=== PATIENT | female | born 1975 | race African-American/Black ===

== ENCOUNTER 2019-02-12 20:38 | Inpatient (IN) | payer OTHER ==
[2019-02-12 22:32] VITALS: BMI 26.6
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
[2019-02-12] MEDS ORDERED: ALBUTEROL SO4 0.083% IH SOL 2.5 MG/3 ML VIAL.NEB. NEB PRN (23:11)
[2019-02-12] MEDS ORDERED: MENTHOL/PHENOL 1 EACH UD MM PRN (23:12)
[2019-02-12] MEDS ORDERED: BISMUTH SUBSALICYLATE 524 MG/30 ML UD PO PRN (23:12)
[2019-02-12] MEDS ORDERED: hydrOXYzine PAMOATE 25 MG CAPSULE (FP) PO PRN (23:12)
[2019-02-12] MEDS ORDERED: MELATONIN 5 MG TABLETS PO PRN (23:12)
[2019-02-12] MEDS ORDERED: MAGNESIUM CITRATE 300 ML BOTTLE PO PRN (23:12)
[2019-02-12] MEDS ORDERED: ACETAMINOPHEN 325 MG TABLET (FP) PO PRN ×2 (23:12)
[2019-02-12] MEDS ORDERED: MAGNESIUM HYDROX 2400MG/30ML ORAL SUSPENSION 30 ML CUP PO PRN (23:12)
[2019-02-12] MEDS ORDERED: METHOCARBAMOL 500 MG TABLET PO PRN (23:12)
[2019-02-12] MEDS ORDERED: MAG HYDROX/AL HYDROX/SIMETH 30 ML UNIT-DOSE CUP PO PRN (23:12)
[2019-02-12] MEDS ORDERED: diazePAM 5 MG TABLET PO ONE (23:14)
[2019-02-12] MEDS ORDERED: diazePAM 5 MG TABLET PO PRN (23:14)
[2019-02-13] MEDS: IBUPROFEN 400 MG TABLET (FP) PO PRN ×3 (00:57→23:04)
[2019-02-13] MEDS: diazePAM 5 MG TABLET PO SCH ×4 (01:47→20:04)
[2019-02-13] MEDS: NICOTINE POLACRILEX 2 MG GUM BUC PRN (06:08)
[2019-02-13] MEDS ORDERED: PNEUMOCOCCAL 23 VACCINE 0.5 ML VIAL IM ONE (08:00)
[2019-02-13 09:49] LABS: HEMATOCRIT 32.7 % (32.4-45.2); HEMOGLOBIN 10.6 GM/dL (10.7-15.3); MCH 28.5 pg (25.7-33.7); MCHC 32.4 g/dl (32.0-36.0); MEAN CELL VOLUME 88.2 fl (80-96); MEAN PLT VOLUME 9.1 fl (7.5-11.1); PLATELET COUNT 293 K/MM3 (134-434); RBC 3.71 M/mm3 (3.60-5.2); WHITE BLOOD COUNT 6.5 K/mm3 (4.0-10.0)
[2019-02-13 09:58] LABS: ALBUMIN 3.1 g/dl (3.4-5.0); BILIRUBIN,TOTAL 0.3 mg/dL (0.2-1); CALCIUM 8.8 mg/dL (8.5-10.1); CREATININE 0.6 mg/dL (0.55-1.3); TOT PROT 6.5 g/dl (6.4-8.2)
[2019-02-13] MEDS: PRENATAL VITAMINS W/ FOLIC ACID TABLET (FP) PO SCH (10:18)
[2019-02-13] MEDS: NICOTINE 14 MG/24 HOURS TOPICAL PATCH TD SCH (10:18)
[2019-02-13] MEDS: DOLUTEGRAVIR SODIUM 50 MG TABLET (NON-FORMULARY) PO SCH (10:19)
[2019-02-13] MEDS: EMTRICITABINE 200MG/TENOFOVIR 300MG PO SCH (10:19)
--- NOTE | 2019-02-13 10:45 | EKG ---
Test Reason : Blood Pressure : / mmHG Vent. Rate : 079 BPM Atrial Rate : 079 BPM P-R Int : 138 ms QRS Dur : 076 ms QT Int : 380 ms P-R-T Axes : 057 079 060 degrees QTc Int : 435 ms SINUS RHYTHM WITH PREMATURE ATRIAL COMPLEXES OTHERWISE NORMAL ECG NO PREVIOUS ECGS AVAILABLE Confirmed by IMELDA JOHNSON, SUZAN ([id number]) on 02/13/2019 10:45:02 AM Referred By: Ramon Grewal Confirmed By:SUZAN SEGURA MD
--- NOTE | 2019-02-13 10:45 | EKG ---
Test Reason : Blood Pressure : / mmHG Vent. Rate : 071 BPM Atrial Rate : 071 BPM P-R Int : 136 ms QRS Dur : 072 ms QT Int : 410 ms P-R-T Axes : 034 074 047 degrees QTc Int : 445 ms NORMAL SINUS RHYTHM NORMAL ECG WHEN COMPARED WITH ECG OF 13-FEB-2019 00:53, PREMATURE ATRIAL COMPLEXES ARE NO LONGER PRESENT Confirmed by SUZAN SEGURA MD ([id number]) on 02/13/2019 10:45:13 AM Referred By: Ramon Grewal Confirmed By:SUZAN SEGURA MD
[2019-02-13] MEDS ORDERED: PNEUMOC 13-VAL CONJ-DIP CRM/PF 0.5 ML DISP.SYRIN IM ONE (12:00)
--- NOTE | 2019-02-13 12:02 | PN ---
S CIWA - CIWA Score Nausea/Vomitin-No Nausea/No Vomiting Muscle Tremors: 1-None Visible, but [place] Anxiety: 2 Agitation: 1-Slight > Activity Paroxysmal Sweats: No Perspiration Orientation: 0-Oriented Tacttile Disturbances: 0-None Auditory Disturbances: 0-None Visual Disturbances: 0-None Headache: 0-None Present CIWA-Ar Total Score: 4 B[facility] Progress Note (SOAP) Subjective: trouble sleeping I am feeling ok Objective: 02/13/19 12:01 Vital Signs Temperature 97.7 F 02/13/19 09:39 Pulse Rate 73 02/13/19 09:39 Respiratory Rate 18 02/13/19 09:39 Blood Pressure 141/77 02/13/19 09:39 O2 Sat by Pulse Oximetry (%) Laboratory Tests 02/12/19 02/13/19 02/13/19 23:03 08:00 08:00 WBC 6.5 RBC 3.71 Hgb 10.6 L Hct 32.7 MCV 88.2 MCH 28.5 MCHC 32.4 RDW 14.0 Plt Count 293 MPV 9.1 Sodium 139 Potassium 4.0 Chloride 109 H Carbon Dioxide 23 Anion Gap 6 L BUN 14.0 Creatinine 0.6 Est GFR (CKD-EPI)AfAm 127.58 Est GFR (CKD-EPI)NonAf 110.08 Random Glucose 88 Calcium 8.8 Total Bilirubin 0.3 AST 21 ALT 20 Alkaline Phosphatase 57 Total Protein 6.5 Albumin 3.1 L POC Urine HCG, Qual Negative RPR Titer 02/13/19 08:00 WBC RBC Hgb Hct MCV MCH MCHC RDW Plt Count MPV Sodium Potassium Chloride Carbon Dioxide Anion Gap BUN Creatinine Est GFR (CKD-EPI)AfAm Est GFR (CKD-EPI)NonAf Random Glucose Calcium Total Bilirubin AST ALT Alkaline Phosphatase Total Protein Albumin POC Urine HCG, Qual RPR Titer Nonreactive labs noted aaox3 ambulating no acute distress Assessment: 02/13/19 12:02 mild withdrawals Plan: continue detox increase fluids trazadone 50mg qhs d/c in am
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
[2019-02-13] MEDS ORDERED: SUVOREXANT 10 MG TABLET PO PRN (22:00)
[2019-02-13] MEDS ORDERED: GABAPENTIN 400 MG CAPSULE (FP) PO SCH (22:00)
[2019-02-13] MEDS ORDERED: traZODone HCL 50 MG TABLET (FP) PO SCH (22:00)
[2019-02-13] MEDS ORDERED: THIAMINE HCL 100 MG TABLET (FP) PO SCH (22:00)
[2019-02-13] MEDS: TOPIRAMATE 100 MG TABLET PO SCH (22:26)
[2019-02-14] MEDS ORDERED: diazePAM 5 MG TABLET PO ONE (06:00)
--- NOTE | 2019-02-14 08:49 | DS ---
[facility] Detox Discharge Summary Admission Date: 02/12/19 Discharge Date: 02/14/19 - History Present History: Alcohol Dependence, Cocaine Dependence - Physical Exam Results Vital Signs: Vital Signs Temperature 97.7 F 02/14/19 05:36 Pulse Rate 169 H 02/14/19 05:36 Respiratory Rate 18 02/14/19 05:36 Blood Pressure 121/70 02/14/19 05:36 O2 Sat by Pulse Oximetry (%) Pertinent Admission Physical Exam Findings: Vital Signs Temperature 97.7 F 02/14/19 05:36 Pulse Rate 169 H 02/14/19 05:36 Respiratory Rate 18 02/14/19 05:36 Blood Pressure 121/70 02/14/19 05:36 O2 Sat by Pulse Oximetry (%) Laboratory Last Values WBC 6.5 K/mm3 (4.0-10.0) 02/13/19 08:00 RBC 3.71 M/mm3 (3.60-5.2) 02/13/19 08:00 Hgb 10.6 GM/dL (10.7-15.3) L 02/13/19 08:00 Hct 32.7 % (32.4-45.2) 02/13/19 08:00 MCV 88.2 fl (80-96) 02/13/19 08:00 MCH 28.5 pg (25.7-33.7) 02/13/19 08:00 MCHC 32.4 g/dl (32.0-36.0) 02/13/19 08:00 RDW 14.0 % (11.6-15.6) 02/13/19 08:00 Plt Count 293 K/MM3 (134-434) 02/13/19 08:00 MPV 9.1 fl (7.5-11.1) 02/13/19 08:00 Sodium 139 mmol/L (136-145) 02/13/19 08:00 Potassium 4.0 mmol/L (3.5-5.1) 02/13/19 08:00 Chloride 109 mmol/L (98-107) H 02/13/19 08:00 Carbon Dioxide 23 mmol/L (21-32) 02/13/19 08:00 Anion Gap 6 MMOL/L (8-16) L 02/13/19 08:00 BUN 14.0 mg/dL (7-18) 02/13/19 08:00 Creatinine 0.6 mg/dL (0.55-1.3) 02/13/19 08:00 Est GFR (CKD-EPI)AfAm 127.58 02/13/19 08:00 Est GFR (CKD-EPI)NonAf 110.08 02/13/19 08:00 Random Glucose 88 mg/dL (74-106) 02/13/19 08:00 Calcium 8.8 mg/dL (8.5-10.1) 02/13/19 08:00 Total Bilirubin 0.3 mg/dL (0.2-1) 02/13/19 08:00 AST 21 U/L (15-37) 02/13/19 08:00 ALT 20 U/L (13-61) 02/13/19 08:00 Alkaline Phosphatase 57 U/L (45-117) 02/13/19 08:00 Total Protein 6.5 g/dl (6.4-8.2) 02/13/19 08:00 Albumin 3.1 g/dl (3.4-5.0) L 02/13/19 08:00 POC Urine HCG, Qual Negative 02/12/19 23:03 RPR Titer Nonreactive (NONREACTIVE) 02/13/19 08:00 aaox3 ambulating no acute distress - Treatment Hospital Course: Detox Protocol Followed, Detoxed Safely, Responded well, Discharged Condition Good, Rehab Referral Accepted Patient has Accepted a Rehab Referral to: pt referred to [facility] inpatient rehab - Medication Discharge Medications: Ambulatory Orders Topiramate [Topamax] 200 mg PO DAILY #30 tablet 12/21/12 Dextroamphetamine/Amphetamine [Adderall Xr 20 mg Capsule] 20 mg PO BID 02/12/19 Gabapentin 600 mg PO TID 02/12/19 Gabapentin 800 mg PO HS 02/12/19 - Diagnosis (1) ADHD (attention deficit hyperactivity disorder) Current Visit: Yes Status: Acute (2) Asthma Current Visit: Yes Status: Acute (3) Bipolar disorder Current Visit: Yes Status: Acute (4) Cocaine dependence Current Visit: Yes Status: Chronic Qualifiers: Substance use status: uncomplicated Qualified Code(s): F14.20 - Cocaine dependence, uncomplicated (5) Substance-induced sleep disorder Current Visit: Yes Status: Acute (6) Uncomplicated alcohol dependence Current Visit: Yes Status: Chronic (7) Cocaine dependence Current Visit: Yes Status: Chronic (8) Nicotine dependence Current Visit: Yes Status: Chronic Qualifiers: Nicotine product type: cigarettes Substance use status: uncomplicated Qualified Code(s): F17.210 - Nicotine dependence, cigarettes, uncomplicated (9) Pulmonary embolism Current Visit: Yes Status: Resolved - AMA Did Patient Leave Against Medical Advice: No
[2019-02-14 10:03] VITALS: BP 133/74; PULSE 87; TEMP 98.2
--- NOTE | 2019-02-14 10:34 | PN ---
[facility] Progress Note Note: rewriter called pt's pharmacy ([facility]) to confirm pt medication. Pt is not prescribed HIV medication sent to pharmacy. Pt will not be prescribed antiviral medication while in detox or rehab. Pt is required to see her PCP or ID medical doctor for follow up and have her medication updated. Pt also stated in admission she is not HIV+ therefore both tiviay and truvada were discontinued from her medication profile. As per pharmacy ([facility]) pt has prescription for gabapentin and topromax and albuterol only.
[2019-02-14] MEDS ORDERED: ALBUTEROL SO4 8 GM HFA INHALER IH PRN (10:35)
[2019-02-14] MEDS: PRENATAL VITAMINS W/ FOLIC ACID TABLET (FP) PO SCH (10:58)
[2019-02-14] MEDS: TOPIRAMATE 100 MG TABLET PO SCH (10:58)
[2019-02-14] MEDS: NICOTINE 14 MG/24 HOURS TOPICAL PATCH TD SCH (11:00)
[2019-02-14] MEDS: NICOTINE POLACRILEX 2 MG GUM BUC PRN (11:02)
[2019-02-14] MEDS: DOLUTEGRAVIR SODIUM 50 MG TABLET (NON-FORMULARY) PO SCH (11:40)
[2019-02-14] MEDS: EMTRICITABINE 200MG/TENOFOVIR 300MG PO SCH (11:40)
== END 2019-02-14 12:55 | disposition other institution (70) | DRG 774 ==
LOC: YASAS 20:38 → Y6N 23:53
PROVIDERS: ADMIT Allergy & Immunology; ATTEND Allergy & Immunology
PROC: HZ2ZZZZ Detoxification Services for Substance Abuse Treatment (ICD-10-PCS; principal; 2019-02-12)
DX: F10.230 Alcohol dependence with withdrawal, uncomplicated (principal); F14.20 Cocaine dependence, uncomplicated; F17.210 Nicotine dependence, cigarettes, uncomplicated; F19.282 Other psychoactive substance dependence with psychoactive substance-induced sleep disorder; F31.9 Bipolar disorder, unspecified; F90.9 Attention-deficit hyperactivity disorder, unspecified type; M17.0 Bilateral primary osteoarthritis of knee; J45.998 Other asthma; Z86.711 Personal history of pulmonary embolism; Z86.718 Personal history of other venous thrombosis and embolism; Z91.5 Personal history of self-harm; Z91.02 Food additives allergy status; Z59.0 Homelessness
CPT/HCPCS: 36415; 80053; 81025; 85027; 86593; 93005; 93010

== ENCOUNTER 2019-02-14 11:50 | Inpatient (IN) | payer OTHER ==
--- NOTE | 2019-02-14 10:22 | HP ---
[facility] Rehab Assess/Revision - Admission History Admitted to Rehab from[facility] - Findings Detox History & Physical reviewed: Yes Concur with findings: Yes Inpatient Rehab Admission - Rehab Decision to Admit Inpatient rehab admission?: Yes - Initial Determination Are CD services needed?: Yes Free of communicable disease: Yes Not in need of hospitalization: Yes - Rehab Admission Criteria Previous failed treatment: Yes Poor recovery environment: Yes Comorbidities: Yes Lacks judgement: Yes Patient is meeting Inpatient Rehab admission criteria:: Yes
[~2019-02-14 11:50] MED LIST: ACETAMINOPHEN 325 MG TABLET (FP) PO PRN; IBUPROFEN 400 MG TABLET (FP) PO PRN; LOPERAMIDE HCL 2 MG CAPSULE PO PRN; MAG HYDROX/AL HYDROX/SIMETH 30 ML UNIT-DOSE CUP PO PRN; MAGNESIUM CITRATE 300 ML BOTTLE PO PRN; MAGNESIUM HYDROX 2400MG/30ML ORAL SUSPENSION 30 ML CUP PO PRN; MENTHOL/PHENOL 1 EACH UD MM PRN; P-EPHED 60MG/TRIPROLIDI 2.5MG TABLET PO PRN; guaiFENesin 200 MG/10 ML 10 ML UNIT-DOSE CUPS PO PRN
[2019-02-14] MEDS ORDERED: ALBUTEROL SO4 8 GM HFA INHALER IH PRN (14:43)
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
[2019-02-14] MEDS: EMTRICITABINE 200MG/TENOFOVIR 300MG PO SCH (15:47)
[2019-02-14] MEDS: DOLUTEGRAVIR SODIUM 50 MG TABLET (NON-FORMULARY) PO SCH (15:47)
[2019-02-14] MEDS: IBUPROFEN 400 MG TABLET (FP) PO PRN ×2 (15:49→22:17)
[2019-02-14] MEDS ORDERED: PT OWN MED DRAWER 7, Y5N ONE ×3 (20:58→21:27)
[2019-02-14] MEDS: GABAPENTIN 400 MG CAPSULE (FP) PO SCH (21:24)
[2019-02-14] MEDS: THIAMINE HCL 100 MG TABLET (FP) PO SCH (21:27)
[2019-02-14] MEDS: TOPIRAMATE 200 MG TABLET (FP) PO SCH (21:27)
[2019-02-14] MEDS: MELATONIN 5 MG TABLETS PO PRN (22:37)
[2019-02-14] MEDS: hydrOXYzine PAMOATE 50 MG CAPSULE (FP) PO PRN (22:38)
[2019-02-14] MEDS: SUVOREXANT 10 MG TABLET PO PRN (22:38)
[2019-02-15] MEDS: TOPIRAMATE 200 MG TABLET (FP) PO SCH (10:02)
[2019-02-15] MEDS: PRENATAL VITAMINS W/ FOLIC ACID TABLET (FP) PO SCH (10:02)
[2019-02-15] MEDS: EMTRICITABINE 200MG/TENOFOVIR 300MG PO SCH (10:03)
[2019-02-15] MEDS: DOLUTEGRAVIR SODIUM 50 MG TABLET (NON-FORMULARY) PO SCH (10:03)
[2019-02-15] MEDS: GABAPENTIN 400 MG CAPSULE (FP) PO SCH (21:36)
[2019-02-15] MEDS: THIAMINE HCL 100 MG TABLET (FP) PO SCH (21:37)
[2019-02-15] MEDS: TOPIRAMATE 100 MG TABLET PO SCH (21:37)
[2019-02-15] MEDS: IBUPROFEN 400 MG TABLET (FP) PO PRN (21:39)
[2019-02-15] MEDS: SUVOREXANT 10 MG TABLET PO PRN (21:40)
[2019-02-15] MEDS: hydrOXYzine PAMOATE 50 MG CAPSULE (FP) PO PRN (21:40)
[2019-02-15] MEDS: MELATONIN 5 MG TABLETS PO PRN (21:40)
[2019-02-16] MEDS: PRENATAL VITAMINS W/ FOLIC ACID TABLET (FP) PO SCH (10:25)
[2019-02-16] MEDS: TOPIRAMATE 100 MG TABLET PO SCH ×2 (10:25→21:01)
[2019-02-16] MEDS: DOLUTEGRAVIR SODIUM 50 MG TABLET (NON-FORMULARY) PO SCH (10:26)
[2019-02-16] MEDS: EMTRICITABINE 200MG/TENOFOVIR 300MG PO SCH (10:26)
[2019-02-16] MEDS ORDERED: PT OWN MED DRAWER 7, Y5N ONE ×2 (11:02→18:42)
[2019-02-16] MEDS: GABAPENTIN 400 MG CAPSULE (FP) PO SCH (21:01)
[2019-02-16] MEDS: SUVOREXANT 10 MG TABLET PO PRN (21:02)
[2019-02-16] MEDS: THIAMINE HCL 100 MG TABLET (FP) PO SCH (21:02)
[2019-02-16] MEDS: MELATONIN 5 MG TABLETS PO PRN (21:03)
[2019-02-16] MEDS: hydrOXYzine PAMOATE 50 MG CAPSULE (FP) PO PRN (23:24)
[2019-02-16] MEDS: IBUPROFEN 400 MG TABLET (FP) PO PRN (23:24)
[2019-02-17] MEDS ORDERED: NICOTINE POLACRILEX 4 MG GUM BUC PRN (08:41)
[2019-02-17] MEDS ORDERED: PT OWN MED DRAWER 7, Y5N ONE ×2 (08:44→19:24)
[2019-02-17] MEDS: NICOTINE 21 MG/24 HOURS TOPICAL PATCH TD SCH (10:02)
[2019-02-17] MEDS: EMTRICITABINE 200MG/TENOFOVIR 300MG PO SCH (10:03)
[2019-02-17] MEDS: TOPIRAMATE 100 MG TABLET PO SCH ×2 (10:03→22:22)
[2019-02-17] MEDS: DOLUTEGRAVIR SODIUM 50 MG TABLET (NON-FORMULARY) PO SCH (10:03)
[2019-02-17] MEDS: PRENATAL VITAMINS W/ FOLIC ACID TABLET (FP) PO SCH (10:03)
[2019-02-17] MEDS: CHLORHEXIDINE GLUCONATE 118 ML MOUTHWASH MM SCH (21:19)
[2019-02-17] MEDS: THIAMINE HCL 100 MG TABLET (FP) PO SCH (21:20)
[2019-02-17] MEDS: GABAPENTIN 400 MG CAPSULE (FP) PO SCH (21:20)
[2019-02-17] MEDS: MELATONIN 5 MG TABLETS PO PRN (21:21)
[2019-02-17] MEDS: hydrOXYzine PAMOATE 50 MG CAPSULE (FP) PO PRN (21:21)
[2019-02-17] MEDS: IBUPROFEN 400 MG TABLET (FP) PO PRN (21:53)
[2019-02-17] MEDS ORDERED: SUVOREXANT 10 MG TABLET PO ONE (22:00)
[2019-02-18] MEDS ORDERED: SUVOREXANT 10 MG TABLET PO PRN (08:21)
[2019-02-18] MEDS: CHLORHEXIDINE GLUCONATE 118 ML MOUTHWASH MM SCH ×2 (09:14→21:12)
[2019-02-18] MEDS: DOLUTEGRAVIR SODIUM 50 MG TABLET (NON-FORMULARY) PO SCH (09:14)
[2019-02-18] MEDS: EMTRICITABINE 200MG/TENOFOVIR 300MG PO SCH (09:14)
[2019-02-18] MEDS: PRENATAL VITAMINS W/ FOLIC ACID TABLET (FP) PO SCH (09:14)
[2019-02-18] MEDS: NICOTINE 21 MG/24 HOURS TOPICAL PATCH TD SCH (09:14)
[2019-02-18] MEDS: TOPIRAMATE 100 MG TABLET PO SCH ×2 (09:14→21:12)
[2019-02-18] MEDS ORDERED: PT OWN MED DRAWER 7, Y5N ONE (19:34)
[2019-02-18] MEDS: GABAPENTIN 400 MG CAPSULE (FP) PO SCH (21:12)
[2019-02-18] MEDS: THIAMINE HCL 100 MG TABLET (FP) PO SCH (21:12)
[2019-02-18] MEDS: MELATONIN 5 MG TABLETS PO PRN (21:14)
[2019-02-18] MEDS: hydrOXYzine PAMOATE 50 MG CAPSULE (FP) PO PRN (21:14)
[2019-02-18] MEDS: IBUPROFEN 400 MG TABLET (FP) PO PRN (22:03)
[2019-02-18 23:09] LABS: EPI CELLS 24.4 /HPF (0-5/HPF); HYALINE CASTS 5 /lpf (0-8); URINE APPEARANCE CLOUDY; URINE BACTERIA 565.3 /hpf (NEGATIVE); URINE BILIRUBIN NEGATIVE (NEGATIVE); URINE COLOR YELLOW; URINE GLUCOSE (UA) NEGATIVE (NEGATIVE); URINE KETONE NEGATIVE (NEGATIVE); URINE LEUK ESTERASE TRACE (NEGATIVE); URINE NITRITE NEGATIVE (NEGATIVE); URINE PROTEIN NEGATIVE (NEGATIVE); URINE RBC 1 /hpf (0-4); URINE UROBILINOGEN 0.2 mg/dL (0.2-1.0); URINE WBC 11 /hpf (0-5)
[2019-02-19] MEDS: CHLORHEXIDINE GLUCONATE 118 ML MOUTHWASH MM SCH ×2 (09:44→21:27)
[2019-02-19] MEDS: NICOTINE 21 MG/24 HOURS TOPICAL PATCH TD SCH (09:44)
[2019-02-19] MEDS: TOPIRAMATE 100 MG TABLET PO SCH ×2 (09:45→21:31)
[2019-02-19] MEDS: PRENATAL VITAMINS W/ FOLIC ACID TABLET (FP) PO SCH (09:45)
[2019-02-19] MEDS: DOLUTEGRAVIR SODIUM 50 MG TABLET (NON-FORMULARY) PO SCH (09:46)
[2019-02-19] MEDS: EMTRICITABINE 200MG/TENOFOVIR 300MG PO SCH (09:46)
[2019-02-19] MEDS ORDERED: PT OWN MED DRAWER 7, Y5N ONE ×2 (09:51→21:31)
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
[2019-02-19 20:11] LABS: EPI CELLS 36.8 /HPF (0-5/HPF); HYALINE CASTS 11 /lpf (0-8); URINE APPEARANCE TURBID; URINE BACTERIA 850.1 /hpf (NEGATIVE); URINE BILIRUBIN NEGATIVE (NEGATIVE); URINE COLOR YELLOW; URINE GLUCOSE (UA) NEGATIVE (NEGATIVE); URINE KETONE NEGATIVE (NEGATIVE); URINE LEUK ESTERASE TRACE (NEGATIVE); URINE NITRITE NEGATIVE (NEGATIVE); URINE PROTEIN NEGATIVE (NEGATIVE); URINE RBC 6 /hpf (0-4); URINE UROBILINOGEN 0.2 mg/dL (0.2-1.0); URINE WBC 8 /hpf (0-5)
[2019-02-19] MEDS: THIAMINE HCL 100 MG TABLET (FP) PO SCH (21:27)
[2019-02-19] MEDS: GABAPENTIN 400 MG CAPSULE (FP) PO SCH (21:28)
[2019-02-19] MEDS: MELATONIN 5 MG TABLETS PO PRN (21:28)
[2019-02-19] MEDS: IBUPROFEN 400 MG TABLET (FP) PO PRN (21:32)
[2019-02-19] MEDS: hydrOXYzine PAMOATE 50 MG CAPSULE (FP) PO PRN (21:33)
[2019-02-20] MEDS: TOPIRAMATE 100 MG TABLET PO SCH ×2 (10:19→21:30)
[2019-02-20] MEDS: PRENATAL VITAMINS W/ FOLIC ACID TABLET (FP) PO SCH (10:19)
[2019-02-20] MEDS: EMTRICITABINE 200MG/TENOFOVIR 300MG PO SCH (10:20)
[2019-02-20] MEDS: NICOTINE 21 MG/24 HOURS TOPICAL PATCH TD SCH (10:20)
[2019-02-20] MEDS: DOLUTEGRAVIR SODIUM 50 MG TABLET (NON-FORMULARY) PO SCH (10:20)
[2019-02-20] MEDS: CHLORHEXIDINE GLUCONATE 118 ML MOUTHWASH MM SCH ×2 (10:21→21:30)
[2019-02-20] MEDS ORDERED: COLLOIDAL OATMEAL 1 BAR EACH TP PRN (11:46)
--- NOTE | 2019-02-20 14:09 | PN ---
[facility] Progress Note Note: Psychiatric nurse practitioner note: Belsomra 10mg renewed X3 days. Verbal consent given.
[2019-02-20] MEDS: SUVOREXANT 10 MG TABLET PO PRN (21:27)
[2019-02-20] MEDS: IBUPROFEN 400 MG TABLET (FP) PO PRN (21:28)
[2019-02-20] MEDS: GABAPENTIN 400 MG CAPSULE (FP) PO SCH (21:28)
[2019-02-20] MEDS: MELATONIN 5 MG TABLETS PO PRN (21:29)
[2019-02-20] MEDS: THIAMINE HCL 100 MG TABLET (FP) PO SCH (21:29)
[2019-02-21] MEDS: PRENATAL VITAMINS W/ FOLIC ACID TABLET (FP) PO SCH (09:59)
[2019-02-21] MEDS: TOPIRAMATE 100 MG TABLET PO SCH ×2 (09:59→21:48)
[2019-02-21] MEDS: EMTRICITABINE 200MG/TENOFOVIR 300MG PO SCH (09:59)
[2019-02-21] MEDS: CHLORHEXIDINE GLUCONATE 118 ML MOUTHWASH MM SCH ×2 (09:59→23:27)
[2019-02-21] MEDS: NICOTINE 21 MG/24 HOURS TOPICAL PATCH TD SCH (09:59)
[2019-02-21] MEDS: DOLUTEGRAVIR SODIUM 50 MG TABLET (NON-FORMULARY) PO SCH (09:59)
[2019-02-21 16:08] LABS: HEP B CORE AB, TOT Negative (Negative)
[2019-02-21] MEDS ORDERED: PT OWN MED DRAWER 7, Y5N ONE ×2 (19:39→21:49)
[2019-02-21] MEDS: GABAPENTIN 400 MG CAPSULE (FP) PO SCH (21:49)
[2019-02-21] MEDS: THIAMINE HCL 100 MG TABLET (FP) PO SCH (21:49)
[2019-02-21] MEDS: MELATONIN 5 MG TABLETS PO PRN (21:50)
[2019-02-21] MEDS: SUVOREXANT 10 MG TABLET PO PRN (21:50)
[2019-02-21] MEDS: IBUPROFEN 400 MG TABLET (FP) PO PRN (21:50)
[2019-02-22] MEDS ORDERED: PT OWN MED DRAWER 7, Y5N ONE (08:51)
[2019-02-22] MEDS: PRENATAL VITAMINS W/ FOLIC ACID TABLET (FP) PO SCH (09:32)
[2019-02-22] MEDS: TOPIRAMATE 100 MG TABLET PO SCH ×2 (09:32→21:03)
[2019-02-22] MEDS: CHLORHEXIDINE GLUCONATE 118 ML MOUTHWASH MM SCH ×2 (09:33→21:07)
[2019-02-22] MEDS: EMTRICITABINE 200MG/TENOFOVIR 300MG PO SCH (09:34)
[2019-02-22] MEDS: NICOTINE 21 MG/24 HOURS TOPICAL PATCH TD SCH (09:34)
[2019-02-22] MEDS: DOLUTEGRAVIR SODIUM 50 MG TABLET (NON-FORMULARY) PO SCH (09:34)
[2019-02-22] MEDS: IBUPROFEN 400 MG TABLET (FP) PO PRN (18:28)
[2019-02-22] MEDS: GABAPENTIN 400 MG CAPSULE (FP) PO SCH (21:03)
[2019-02-22] MEDS: hydrOXYzine PAMOATE 50 MG CAPSULE (FP) PO PRN (21:04)
[2019-02-22] MEDS: SUVOREXANT 10 MG TABLET PO PRN (21:04)
[2019-02-22] MEDS: MELATONIN 5 MG TABLETS PO PRN (21:05)
[2019-02-22] MEDS: THIAMINE HCL 100 MG TABLET (FP) PO SCH (21:05)
[2019-02-23] MEDS ORDERED: PT OWN MED DRAWER 7, Y5N ONE ×2 (08:42→10:36)
[2019-02-23] MEDS: PRENATAL VITAMINS W/ FOLIC ACID TABLET (FP) PO SCH (10:30)
[2019-02-23] MEDS: NICOTINE 21 MG/24 HOURS TOPICAL PATCH TD SCH (10:30)
[2019-02-23] MEDS: CHLORHEXIDINE GLUCONATE 118 ML MOUTHWASH MM SCH ×2 (10:30→21:31)
[2019-02-23] MEDS: TOPIRAMATE 100 MG TABLET PO SCH ×2 (10:36→21:30)
[2019-02-23] MEDS: DOLUTEGRAVIR SODIUM 50 MG TABLET (NON-FORMULARY) PO SCH (10:37)
[2019-02-23] MEDS: EMTRICITABINE 200MG/TENOFOVIR 300MG PO SCH (10:37)
--- NOTE | 2019-02-23 12:24 | PN ---
[facility] Progress Note Note: Psychiatric nurse practitoner note: Belsomra 10mg renewed X3 days. Verbal consent given.
[2019-02-23] MEDS: THIAMINE HCL 100 MG TABLET (FP) PO SCH (21:27)
[2019-02-23] MEDS: MELATONIN 5 MG TABLETS PO PRN (21:29)
[2019-02-23] MEDS: hydrOXYzine PAMOATE 50 MG CAPSULE (FP) PO PRN (21:29)
[2019-02-23] MEDS: SUVOREXANT 10 MG TABLET PO PRN (21:29)
[2019-02-23] MEDS: IBUPROFEN 400 MG TABLET (FP) PO PRN (21:29)
[2019-02-23] MEDS: GABAPENTIN 400 MG CAPSULE (FP) PO SCH (21:30)
[2019-02-24] MEDS: PRENATAL VITAMINS W/ FOLIC ACID TABLET (FP) PO SCH (09:53)
[2019-02-24] MEDS: DOLUTEGRAVIR SODIUM 50 MG TABLET (NON-FORMULARY) PO SCH (09:53)
[2019-02-24] MEDS: CHLORHEXIDINE GLUCONATE 118 ML MOUTHWASH MM SCH ×2 (09:54→21:40)
[2019-02-24] MEDS: EMTRICITABINE 200MG/TENOFOVIR 300MG PO SCH (09:54)
[2019-02-24] MEDS: TOPIRAMATE 100 MG TABLET PO SCH ×2 (09:54→21:39)
[2019-02-24] MEDS: NICOTINE 21 MG/24 HOURS TOPICAL PATCH TD SCH (09:54)
[2019-02-24] MEDS: hydrOXYzine PAMOATE 50 MG CAPSULE (FP) PO PRN ×2 (15:48→21:38)
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
[2019-02-24] MEDS ORDERED: PT OWN MED DRAWER 7, Y5N ONE (19:37)
[2019-02-24] MEDS: SUVOREXANT 10 MG TABLET PO PRN (21:38)
[2019-02-24] MEDS: THIAMINE HCL 100 MG TABLET (FP) PO SCH (21:38)
[2019-02-24] MEDS: GABAPENTIN 400 MG CAPSULE (FP) PO SCH (21:38)
[2019-02-24] MEDS: IBUPROFEN 400 MG TABLET (FP) PO PRN (21:38)
[2019-02-25] MEDS: CHLORHEXIDINE GLUCONATE 118 ML MOUTHWASH MM SCH ×2 (09:48→21:14)
[2019-02-25] MEDS: TOPIRAMATE 100 MG TABLET PO SCH ×2 (09:49→21:12)
[2019-02-25] MEDS: NICOTINE 21 MG/24 HOURS TOPICAL PATCH TD SCH (09:49)
[2019-02-25] MEDS: PRENATAL VITAMINS W/ FOLIC ACID TABLET (FP) PO SCH (09:49)
[2019-02-25] MEDS: EMTRICITABINE 200MG/TENOFOVIR 300MG PO SCH (09:50)
[2019-02-25] MEDS: DOLUTEGRAVIR SODIUM 50 MG TABLET (NON-FORMULARY) PO SCH (09:50)
[2019-02-25] MEDS: hydrOXYzine PAMOATE 50 MG CAPSULE (FP) PO PRN (17:00)
[2019-02-25] MEDS: GABAPENTIN 400 MG CAPSULE (FP) PO SCH (21:09)
[2019-02-25] MEDS: THIAMINE HCL 100 MG TABLET (FP) PO SCH (21:09)
[2019-02-25] MEDS: MELATONIN 5 MG TABLETS PO PRN (21:11)
[2019-02-25] MEDS: SUVOREXANT 10 MG TABLET PO PRN (21:11)
[2019-02-25] MEDS: IBUPROFEN 400 MG TABLET (FP) PO PRN (21:11)
[2019-02-26] MEDS: hydrOXYzine PAMOATE 50 MG CAPSULE (FP) PO PRN ×2 (02:35→21:51)
[2019-02-26] MEDS ORDERED: PT OWN MED DRAWER 7, Y5N ONE (08:55)
[2019-02-26] MEDS: CHLORHEXIDINE GLUCONATE 118 ML MOUTHWASH MM SCH ×2 (10:21→21:53)
[2019-02-26] MEDS: EMTRICITABINE 200MG/TENOFOVIR 300MG PO SCH (10:21)
[2019-02-26] MEDS: DOLUTEGRAVIR SODIUM 50 MG TABLET (NON-FORMULARY) PO SCH (10:21)
[2019-02-26] MEDS: PRENATAL VITAMINS W/ FOLIC ACID TABLET (FP) PO SCH (10:21)
[2019-02-26] MEDS: TOPIRAMATE 100 MG TABLET PO SCH ×2 (10:21→21:52)
[2019-02-26] MEDS: NICOTINE 21 MG/24 HOURS TOPICAL PATCH TD SCH (10:22)
--- NOTE | 2019-02-26 10:49 | PN ---
[facility] Progress Note Note: labs reviewed with patient, who will get a copy of the results upon discharge. Laboratory Last Values Urine Color Yellow 02/19/19 16:42 Urine Appearance Turbid 02/19/19 16:42 Urine pH 8.0 (5.0-8.0) 02/19/19 16:42 Ur Specific [place] 1.023 (1.010-1.035) 02/19/19 16:42 Urine Protein Negative (NEGATIVE) 02/19/19 16:42 Urine Glucose (UA) Negative (NEGATIVE) 02/19/19 16:42 Urine Ketones Negative (NEGATIVE) 02/19/19 16:42 Urine Blood Negative (NEGATIVE) 02/19/19 16:42 Urine Nitrite Negative (NEGATIVE) 02/19/19 16:42 Urine Bilirubin Negative (NEGATIVE) 02/19/19 16:42 Urine Urobilinogen 0.2 mg/dL (0.2-1.0) 02/19/19 16:42 Ur Leukocyte Esterase Trace (NEGATIVE) 02/19/19 16:42 Urine WBC (Auto) 8 /hpf (0-5) 02/19/19 16:42 Urine RBC (Auto) 6 /hpf (0-4) 02/19/19 16:42 Urine Casts (Auto) 11 /lpf (0-8) 02/19/19 16:42 U Epithel Cells (Auto) 36.8 /HPF (0-5/HPF) 02/19/19 16:42 Urine Crystals (Auto) /hpf 02/18/19 16:04 Urine Bacteria (Auto) 850.1 /hpf (NEGATIVE) 02/19/19 16:42 C. trachomatis (IRIS) Negative (Negative) 02/20/19 04:42 Hep A IgM Ab Confirm Negative (Negative) 02/20/19 08:00 Hepatitis A Ab Total Positive (Negative) H 02/20/19 08:00 Hep Bs Antigen Negative (Negative) 02/20/19 08:00 Hep Bs Antibody Reactive (.) 02/20/19 08:00 Hep B Core Total Ab Negative (Negative) 02/20/19 08:00 Hep B Core IgM Ab Negative (Negative) 02/20/19 08:00 Hepatitis Be Antibody Negative (Negative) 02/20/19 08:00 Hepatitis Be Antigen Negative (Negative) 02/20/19 08:00 Hep C Ab Diagnostic 0.4 s/co ratio (0.0-0.9) 02/18/19 07:50 HIV 1&2 Antibody Screen Negative 02/18/19 07:50 HIV P24 Antigen Negative 02/18/19 07:50 N. gonorrhoeae (IRIS) Negative (Negative) 02/20/19 04:42
[2019-02-26] MEDS: GABAPENTIN 400 MG CAPSULE (FP) PO SCH (21:51)
[2019-02-26] MEDS: SUVOREXANT 10 MG TABLET PO PRN (21:51)
[2019-02-26] MEDS: IBUPROFEN 400 MG TABLET (FP) PO PRN (21:51)
[2019-02-26] MEDS: THIAMINE HCL 100 MG TABLET (FP) PO SCH (21:51)
[2019-02-27] MEDS: CHLORHEXIDINE GLUCONATE 118 ML MOUTHWASH MM SCH ×2 (09:52→21:14)
[2019-02-27] MEDS: PRENATAL VITAMINS W/ FOLIC ACID TABLET (FP) PO SCH (09:53)
[2019-02-27] MEDS: TOPIRAMATE 100 MG TABLET PO SCH ×2 (09:53→21:13)
[2019-02-27] MEDS: NICOTINE 21 MG/24 HOURS TOPICAL PATCH TD SCH (09:53)
[2019-02-27] MEDS: DOLUTEGRAVIR SODIUM 50 MG TABLET (NON-FORMULARY) PO SCH (09:53)
[2019-02-27] MEDS: EMTRICITABINE 200MG/TENOFOVIR 300MG PO SCH (09:54)
[2019-02-27] MEDS ORDERED: PT OWN MED DRAWER 7, Y5N ONE (21:10)
[2019-02-27] MEDS: SUVOREXANT 10 MG TABLET PO PRN (21:12)
[2019-02-27] MEDS: THIAMINE HCL 100 MG TABLET (FP) PO SCH (21:12)
[2019-02-27] MEDS: GABAPENTIN 400 MG CAPSULE (FP) PO SCH (21:13)
[2019-02-27] MEDS: IBUPROFEN 400 MG TABLET (FP) PO PRN (21:13)
[2019-02-28] MEDS: hydrOXYzine PAMOATE 50 MG CAPSULE (FP) PO PRN (02:08)
[2019-02-28 06:34] VITALS: BP 110/71; PULSE 60; TEMP 97.2
--- NOTE | 2019-02-28 08:14 | DS ---
[facility] Re[facility] Discharge Summary - [facility] Discharge Summary Admission Date: 02/14/19 Discharge Date: 02/28/19 - History Present History: Alcohol dependence, Cocaine dependence Pertinent Past History: pt here requesting detox from cocaine and etoh use, latest use today, reports tremors if not drinking,denies seizures, + blackouts " years ago " psych : anxiety , adhd adult children patient on nPEP for possible exposure to HIV - Discharge Physical Exam Vital Signs: Vital Signs Temperature 97.2 F L 02/28/19 06:33 Pulse Rate 60 02/28/19 06:33 Respiratory Rate 16 02/28/19 06:33 Blood Pressure 110/71 02/28/19 06:33 O2 Sat by Pulse Oximetry (%) Pertinent Admission Physical Exam Findings: General Appearance: No apparent distress HEENTM: Normocephalic, poor dentition , many missing teeth Respiratory: clear Neck: Trachea in good position Cardiology: S1, S2 Abdominal: +BS< Non Tender, Soft Musculoskeletal: Yes: Gait Steady Neuro: s1 s2 intact - Treatment Discharge Condition: Discharge condition good (Medically stable for discharge.) Hospital Course: Patient attended groups, met with her counselor 1:1, and was adherent to her medication regimen and treatment program. - Medication Discharge Medications: Ambulatory Orders Topiramate [Topamax] 200 mg PO DAILY #30 tablet 12/21/12 Gabapentin 800 mg PO HS 02/12/19 Dolutegravir Sodium [Tivicay] 50 mg PO DAILY #30 tablet 02/28/19 Emtricitabine/Tenofovir [Truvada] 1 tab PO DAILY #30 tablet 02/28/19 - Discharge Instructions Diet, activity, other medical instructions: Diet: as tolerated Activity: as tolerated Other medical instructions:as tolerated - Diagnosis (1) Alcohol use disorder Status: Chronic (2) Cocaine dependence Status: Chronic Qualifiers: Substance use status: uncomplicated Qualified Code(s): F14.20 - Cocaine dependence, uncomplicated - Follow-up Referral Minutes to complete discharge: 20 - AMA Did Patient Leave Against Medical Advice: No
[2019-02-28] MEDS ORDERED: PT OWN MED DRAWER 7, Y5N ONE (09:00)
[2019-02-28] MEDS: PRENATAL VITAMINS W/ FOLIC ACID TABLET (FP) PO SCH (09:05)
[2019-02-28] MEDS: DOLUTEGRAVIR SODIUM 50 MG TABLET (NON-FORMULARY) PO SCH (09:06)
[2019-02-28] MEDS: CHLORHEXIDINE GLUCONATE 118 ML MOUTHWASH MM SCH (09:06)
[2019-02-28] MEDS: TOPIRAMATE 100 MG TABLET PO SCH (09:06)
== END 2019-02-28 09:10 | disposition home or self-care (01) | DRG 772 ==
LOC: YASAS 11:50 → Y3E 11:51
PROVIDERS: ADMIT Neuromusculoskeletal Medicine & OMM; ATTEND Neuromusculoskeletal Medicine & OMM
PROC: HZ42ZZZ Group Counseling for Substance Abuse Treatment, Cognitive-Behavioral (ICD-10-PCS; principal; 2019-02-14)
DX: F10.20 Alcohol dependence, uncomplicated (principal); F14.20 Cocaine dependence, uncomplicated; F17.210 Nicotine dependence, cigarettes, uncomplicated; F90.9 Attention-deficit hyperactivity disorder, unspecified type; F31.9 Bipolar disorder, unspecified; G47.00 Insomnia, unspecified; J45.909 Unspecified asthma, uncomplicated; M17.0 Bilateral primary osteoarthritis of knee; Z86.718 Personal history of other venous thrombosis and embolism; Z86.711 Personal history of pulmonary embolism; Z62.810 Personal history of physical and sexual abuse in childhood; Z59.0 Homelessness
CPT/HCPCS: 36415; 81003; 86704; 86706; 86707; 86708; 86709; 86803; 87340; 87389; 87491; 87591